=== PATIENT | male | born 1970 | race Native Hawaiian/Other Pacific Islander ===

== ENCOUNTER → 2017-01-12 | Outpatient (CLI) | payer BC ==
--- NOTE | 2017-01-13 10:28 | CONS ---
DATE OF SERVICE: 01/12/2017 A 46-year-old gentleman who has [facility] for obstructive sleep apnea-hypopnea syndrome. HISTORY OF PRESENT ILLNESS/SLEEP WAKE EVALUATION: Patient has been diagnosed with obstructive sleep apnea about 12 years ago. After that underwent UPPP and nasal surgery for nasal septum deviation and felt better. Snoring improved and he stopped to wake up from sleep evaluation secondary to sleep apneas. Over the years he increased his weight and again developed snoring and sleep apneas. SLEEP SCHEDULE: Presently his sleep schedule is from around 10:00 p.m. until 6: 00 a.m. FALLING ASLEEP: Usually without problems to fall asleep while he is taking Klonopin at night. He has TV set in bedroom. DURING SLEEP: Sleeps usually on the side position. Has awakenings with chocking. No history of sleep paralysis, hypnagogic hallucinations or cataplexia. DURING THE DAY/WAKE STATE: In the morning the patient wakes up tired, has problems with paying attention, falling asleep during the day and worries about his sleep, has problems with memory, concentration, irritability, depression, anxiety, sexual dysfunction. [place] sleepiness scale significantly increased to 14. PAST MEDICAL HISTORY: Positive for depression, acid reflux. PAST SURGICAL HISTORY: Tonsillectomy at age of 10, UPPP and nasal surgery. MEDICATIONS: ( ) and Klonopin. SOCIAL HISTORY: Negative for smoking, alcohol consumption occasional. FAMILY HISTORY: Hypertension, heart problems, hyperlipidemia, arthritis, sleep apnea, snoring, acid reflux. REVIEW OF SYSTEMS: Awakenings from sleep with gasping for air and choking, snoring, tiredness and sleepiness during the day. No fevers No double vision. No recent chest pain. No shortness of breath. No abdominal pain. No bleeding episodes. No blood in urine. No seizure episodes. PHYSICAL EXAMINATION: General: A 46-year-old gentleman without distress. VITAL SIGNS: BP 125/82, HR 80, RR 16, height 5 foot 9, weight 227, body mass index 33.5. Neck 17.5 inches in circumference. Temperature 97.4. Oxygen saturation on room air 95%. HEENT: PERRLA, EOMI. Evaluation of oropharynx is status post UPPP, but still low position of soft palate. NECK: Supple. No JVD. Thyroid is not palpable. LUNGS: Clear to percussion and to auscultation. Good air exchange. No wheezing or rhonchi. HEART: S1, S2 regular. No murmurs, gallops or rubs. ABDOMEN: Obese. Soft and nontender. Bowel sounds are present. No organomegaly appreciated. EXTREMITIES: No cyanosis or clubbing. VELVET STEAMER: Awake, alert and oriented x3. Cranial nerves II through VII intact. There is no fasciculation or atrophy noted. No focal deficits observed. IMPRESSION: 1. History of obstructive sleep apnea-hypopnea syndrome diagnosed 12-years ago. Underwent uvulopalatopharyngoplasty and nasal surgery. Presently has snoring, witnessed episodes of stopped breathing, small oropharyngeal airspace, sleepiness, [place] sleepiness scale increased to 14. Obstructive sleep apnea- hypopnea syndrome. 2. Obesity. Body mass index of 33.5. 3. Depression. 4. Acid reflux. 5. Status post uvulopalatopharyngoplasty. 6. Status post surgery for nasal septum deviation. 7. Status post tonsillectomy. PLAN: 1. Polysomnography for evaluation of patients breathing during sleep. 2. CPAP/BiPAP titration if sleep study confirms obstructive sleep apnea- hypopnea syndrome. 3. Preferable position during sleep on the side. 4. No driving if patient feels any sleepiness. Patient is aware of civil and criminal liability for unsafe driving. 5. I will see the patient for follow-up visit to explain results of the testing and following plan. Thank you very much for referring this patient for consultation. Sincerely, Natalee Gracia MD, PhD, FAASM Diplomat of [employer], Sleep Medicine Board by [employer] [facility]
== END | disposition home or self-care (01) ==
LOC: SLEEP 16:14
PROVIDERS: ATTEND Internal Medicine
DX: G47.33 Obstructive sleep apnea (adult) (pediatric) (principal); F32.9 Major depressive disorder, single episode, unspecified; K21.9 Gastro-esophageal reflux disease without esophagitis; E66.9 Obesity, unspecified; Z68.33 Body mass index [BMI] 33.0-33.9, adult; Z98.890 Other specified postprocedural states
CPT/HCPCS: 99211

== ENCOUNTER → 2017-01-24 | Outpatient (CLI) | payer BC ==
--- NOTE | 2017-01-25 10:07 | US ---
EXAMINATION TYPE: US abdomen complete DATE OF EXAM: 01/24/2017 COMPARISON: NONE CLINICAL HISTORY: RUQ Pain R10.11, K81.9 Cholecystitis. EXAM MEASUREMENTS: Liver Length: 17.1 cm Gallbladder Wall: 0.27 cm CBD: 0.44 cm Spleen: 11.2 cm Right Kidney: 12.1 x 5.8 x 5.0 cm Left Kidney: 11.6 x 5.5 x 5.0 cm Pancreas: Obscured by bowel gas Liver: Increased attenuation, most commonly related to hepatic steatosis. This finding limits evalua tion for underlying hepatic masses. Gallbladder: wnl Evidence for sonographic Deal's sign: No CBD: wnl Spleen: wnl Right Kidney: No hydronephrosis or masses seen Left Kidney: Anechoic area visualized lower pole measuring 3.0 x 2.4 x 3.6 cm Upper IVC: wnl Abd Aorta: wnl The intrahepatic portion of the IVC and proximal abdominal aorta are within normal limits. There is no evidence of cholelithiasis. Common bile duct is unremarkable. The spleen is unremarkable. Kidn eys are symmetric and free of hydronephrosis. IMPRESSION: 1. No sonographic evidence of cholecystitis or cholelithiasis. 2. Hyperechoic hepatic echogenicity, most commonly relating to hepatic steatosis. 3. Left renal cyst. 4. Obscured pancreas by bowel gas.
== END | disposition home or self-care (01) ==
LOC: RADUSWWP 19:34
PROVIDERS: ATTEND Family Medicine
DX: N28.1 Cyst of kidney, acquired (principal); K76.89 Other specified diseases of liver; R10.11 Right upper quadrant pain
CPT/HCPCS: 76700

== ENCOUNTER → 2017-06-29 | Outpatient (CLI) | payer BC ==
--- NOTE | 2017-06-29 08:35 | US ---
EXAMINATION TYPE: US abdomen limited DATE OF EXAM: 06/29/2017 COMPARISON: NONE CLINICAL HISTORY: K43.9 Ventral hernia, Umbilical hernia K42.9. Midline abdomen 2 palpable/painful ar eas x couple years Assess for hernia at location of: Midline lower abdomen, umbilicus Scanned midline lower abdomen palpable area #1: appears wnl Scanned umbilicus palpable area #2: 1.9 x 1.4 x 1.6cm superficial area that appears to increase with valsalva, possible hernia vs. other etiology. IMPRESSION: 1. Suspected mesenteric fat containing periumbilical hernia at the palpable abnormality. 2. No suspicious abnormality at the midline lower abdominal pelvic abnormality Real-time scanning was performed by the mix house operator utilizing Valsalva and additional dynamic maneuve rs to assess for hernia. Images of the contralateral side were also acquired for direct comparison.
== END | disposition home or self-care (01) ==
LOC: RADUSWWP 06:59
PROVIDERS: ATTEND Family Medicine
DX: K43.9 Ventral hernia without obstruction or gangrene (principal); K42.9 Umbilical hernia without obstruction or gangrene
CPT/HCPCS: 76705

== ENCOUNTER → 2020-06-18 | Outpatient (CLI) | payer OTHER ==
--- NOTE | 2020-06-18 08:59 | US ---
EXAMINATION TYPE: US abdomen complete DATE OF EXAM: 06/18/2020 COMPARISON: Ultrasound abdomen January 24, 2017 CLINICAL HISTORY: R10.9 abdominal pain, R14.2 Eructation. gassy, heartburn, pain after eating greasy, spicy food. EXAM MEASUREMENTS: Liver Length: 16.0 cm Gallbladder Wall: 0.2 cm CBD: 0.6 cm Spleen: 11.8 cm Right Kidney: 11.8 x 6.0 x 6.9 cm Left Kidney: 11.6 x 5.3 x 5.4 cm Pancreas: not seen due to bowel gas Liver: difficult to penetrate Gallbladder: dependant sludge may be present, otherwise wnl Evidence for sonographic Deal's sign: no CBD: wnl Spleen: 1.0cm calcification seen Right Kidney: wnl Left Kidney: 4.1cm lateral cyst, seen previously Upper IVC: wnl Abd Aorta: proximal portion gassed out The visualized liver is heterogeneously hyperechoic. No intrahepatic ductal dilatation .The intrahepa tic portion of the IVC and is enlarged proximal and mid abdominal aorta are within normal limits. Th ere is no evidence of settling mobile cholelithiasis. Common bile duct is unremarkable. Optimal eval uation pancreas and images saved due to overlying bowel gas per technologist. The spleen is unremark able. Kidneys are free of hydronephrosis. There is 4.1 cm thin-walled cyst exophytically lower pole left kidney towards end of study. Slightly larger in size from prior ultrasound. IMPRESSION: No acute findings clearly identified. Persistent marked fatty infiltration of liver is th ought present.
--- NOTE | 2020-06-18 10:39 | FL ---
EXAMINATION TYPE: FL UGI air DATE OF EXAM: 06/18/2020 COMPARISON: US abdomen early today. HISTORY: Heartburn and reflux-like symptoms. Abdominal pain and Eructation per patient. TECHNIQUE: A double contrast UGI study is performed. FINDINGS: Hog Buyer image of the abdomen shows no gross abnormality. The esophagus shows satisfactory motility and emptying into the stomach. No diverticulum. No intralum inal mass or stricture. The stomach shows satisfactory distensibility and peristalsis. Moderate to severe gastric fold promin ence in the fundus is present. No evidence of any focal ulcer disease. Moderate to severe gastroesoph ageal reflux was seen during real time performance of this study into the distal one half of the esop hagus. The duodenal bulb, sweep, and proximal small bowel loops are unremarkable. IMPRESSION: Moderate to severe focal fundal gastritis with moderate distal gastroesophageal reflux.
== END | disposition home or self-care (01) ==
LOC: RADUSWWP 08:09
PROVIDERS: ATTEND Family Medicine
DX: K29.70 Gastritis, unspecified, without bleeding (principal); K21.9 Gastro-esophageal reflux disease without esophagitis; K76.0 Fatty (change of) liver, not elsewhere classified
CPT/HCPCS: 74246; 76700